=== PATIENT | male | born 1970 | race African-American/Black ===

== ENCOUNTER 2021-02-24 19:26 | Emergency (ER) | payer OTHER ==
[~2021-02-24] VITALS: Ht 180.3 cm; Wt 65.8 kg
[2021-02-24 20:07] LABS: URINE BILIRUBIN NEGATIVE (Negative); URINE BLOOD TRACE (Negative); URINE CLARITY CLEAR; URINE COLOR YELLOW; URINE GLUCOSE-RANDOM* NEGATIVE (Negative); URINE KETONES NEGATIVE (Negative); URINE LEUKOCYTES-REFLEX TRACE (Negative); URINE NITRITE-REFLEX NEGATIVE (Negative); URINE PROTEIN (DIPSTICK) NEGATIVE (Negative); URINE SPECIFIC GRAVITY 1.015 (1.005-1.035); URINE UROBILINOGEN 0.2 E.U./dl (0.2-1.0)
[2021-02-24 20:44] LABS: ABSOLUTE NEUTROPHILS 10.9 thou/uL (1.4-8.2); BASOPHILS 0.6 % (0.0-2.0); HEMATOCRIT 40.2 % (42.0-52.0); HEMOGLOBIN 13.8 gm/dL (14.0-18.0); LYMPHOCYTES 19.1 % (24.0-44.0); MCH 32.8 pg (26.0-34.0); MCHC 34.2 g/dL (28.0-37.0); MCV 95.9 fL (80.0-100.0); MONOCYTES 6.3 % (1.0-8.0); PLATELET COUNT 242 thou/uL (150-400); RBC 4.19 mil/uL (4.50-6.00); WBC 15.3 thou/uL (4.0-11.0)
[2021-02-24 20:59] LABS: CALCIUM 9.5 mg/dL (8.5-10.1); CREATININE 0.9 mg/dL (0.7-1.3)
[2021-02-24 21:04] LABS: ALBUMIN 3.6 g/dL (3.4-5.0); TOTAL BILIRUBIN 0.2 mg/dL (0.2-1.0); TOTAL PROTEIN 7.6 g/dL (6.4-8.2)
[2021-02-24] MEDS ORDERED: NORCO 10-325 T1 EACH PO (22:47)
[2021-02-24] MEDS ORDERED: CIPROFLOXACIN500 M1 PO (22:47)
[2021-02-24] MEDS ORDERED: IBU600 MG PO (22:47)
[2021-02-24 23:23] VITALS: BP 151/92
[2021-02-24] MEDS ORDERED: LORAZEPAM 2MG TA2 M1 PO (23:24)
== END 2021-02-24 23:38 | disposition home or self-care (01) ==
LOC: ER 19:26
PROVIDERS: Emergency Medicine
DX: N45.1 Epididymitis (principal); R10.31 Right lower quadrant pain